=== PATIENT | male | born 1960 | race Caucasian/White ===

== ENCOUNTER 2016-12-25 08:05 | Day surgery (SDC) | payer OTHER ==
[~2016-12-25] VITALS: Ht 177.8 cm; Wt 96.8 kg
[~2016-12-25 08:05] MED LIST: ATOR20TA59 PO; LIDOCAINE 1% (10mg/ml) 2ml SDV INJ ONE; LR 1,000 ML IV SCH
--- OUTSIDE RECORDS SUMMARY | 2016-12-25 08:09 | XMS REPORT | Referral Summary ---
Author Author [facility] Organization [facility] Address Unknown Phone Unavailable Care Team Providers Care Special Deputy Sheriff Name Role Phone Arturo Arboleda Primary Care Physician [phone] Encounter VC Date(s): 01/30/16 - 01/30/16 [facility] [address] [place] [address] Discharge Diagnosis: Visit for suture removal Discharge Diagnosis: Finger fracture Discharge Disposition: 01-Home or Self Care Attending Physician: Arturo Arboleda DO Admitting Physician: Arturo Arboleda DO Vital Signs Most recent to 1 oldest [Reference Range]: Temperature Tympanic 35.9 degC [36.6-38.1 degC] *LOW* (01/30/16 8:21 AM) Peripheral Pulse 60 bpm Rate [60-100 bpm] (01/30/16 8:21 AM) Blood Pressure 115/71 mmHg [90-140/60-90 mmHg] (01/30/16 8:21 AM) Problem List Condition Effective Dates Status Health Status Informant Obesity(Confirmed) Active patient Allergies, Adverse Reactions, Alerts Substance Reaction Severity Status penicillin Active Medications doxycycline hyclate 100 mg oral tablet 100 mg 1 tabs, Oral, Daily, X 50 days, # 50 tabs, 0 Refill(s), Pharmacy: [facility] #[id number], 1 tabs Oral Daily,x50 days Start Date: 12/25/15 Stop Date: 02/13/16 Status: Ordered meloxicam 15 mg oral tablet 15 mg 1 tabs, Oral, Daily, # 30 tabs, 0 Refill(s), Pharmacy: [facility] # [id number], 1 tabs Oral Daily Start Date: 05/06/15 Status: Ordered Results No data available for this section Immunizations Vaccine Date Refusal Reason tetanus-diphth toxoids (Td) adult/adol 05/06/15 Procedures No data available for this section Social History Social History Type Response Smoking Status Former smoker; Type: Cigarettes; Tobacco use per day: 1 Pack ; Number of years: 15 Assessment and Plan Extracted from: Title: Office Visit Note Author: Arturo Arboleda DO Date: 01/30/16 Assessment/Plan 1.Finger fracture, Nondisplaced fracture of distal phalanx of right little finger, initial encounter for open fracture 1. Finger splint was provided. 2. Start increasing range of motion and after 4 weeks. Ordered: Office Visit Level 3 Est 80518 2.Visit for suture removal, Encounter for removal of sutures 1. Sutures removed without difficulty. 2. Continue with dry dressing. 3. Follow-up for any new concerns. Ordered: Office Visit Level 3 Est 73655
--- OUTSIDE RECORDS SUMMARY | 2016-12-25 08:09 | XMS REPORT | Referral Summary ---
Author Author [facility] Organization [facility] Address Unknown Phone Unavailable Care Team Providers Care County Adviser Name Role Phone Juan Flores Primary Care Physician [phone] Encounter Date(s): 05/21/15 - 05/21/15 [facility] [address] [place] [address] Discharge Diagnosis: Mixed hyperlipidemia Discharge Diagnosis: Hamstring tightness Discharge Disposition: 01-Home or Self Care Attending Physician: Arturo Arboleda DO Admitting Physician: Arturo Arboleda DO Vital Signs Most recent to 1 oldest [Reference Range]: Temperature Tympanic 35.8 degC [36.6-38.1 degC] *LOW* (05/21/15 7:51 AM) Peripheral Pulse 60 bpm Rate [60-100 bpm] (05/21/15 7:51 AM) Blood Pressure 135/80 mmHg [90-140/60-90 mmHg] (05/21/15 7:51 AM) Problem List Condition Effective Dates Status Health Status Informant Obesity(Confirmed) Active patient Allergies, Adverse Reactions, Alerts Substance Reaction Severity Status penicillin Active Medications cyclobenzaprine 10 mg oral tablet 10 mg 1 tabs, Oral, Daily, as needed for spasm, X 30 days, # 30 tabs, 0 Refill(s ), Pharmacy: [facility] #[id number], 1 tabs Oral Daily,x30 days,PRN:as needed for spasm Start Date: 05/06/15 Stop Date: 06/05/15 Status: Ordered meloxicam 15 mg oral tablet 15 mg 1 tabs, Oral, Daily, # 30 tabs, 0 Refill(s), Pharmacy: [facility] # [id number], 1 tabs Oral Daily Start Date: 05/06/15 Status: Ordered predniSONE 10 mg oral tablet See Instructions, 5 daily for 3 days, then 4 daily for 3 days, then 3 daily for 3 days, then 2 daily for 3 days, then one daily for 3 days, # 45 tabs, 0 Refill( s), Pharmacy: [facility] #[id number], 5 daily for 3 days, then 4 daily for 3 days, then 3... Start Date: 05/06/15 Stop Date: 06/05/15 Status: Ordered Results No data available for this section Immunizations Vaccine Date Refusal Reason tetanus-diphth toxoids (Td) adult/adol 05/06/15 Procedures No data available for this section Social History Social History Type Response Smoking Status Former smoker; Type: Cigarettes; Tobacco use per day: 1 Pack ; Number of years: 15 Assessment and Plan Extracted from: Title: Office Visit Note Author: Arturo Arboleda DO Date: 05/21/15 Assessment/Plan Hamstring tightness 1. Continue stretching exercises. 2. Continue decompression. 3. Continue meloxicam daily . Ordered: Office Visit Level 4 Est 25925 Mixed hyperlipidemia 1. Recommended healthy lifestyle changes and an effort to decrease his cardiovascular risk factors, patient voiced understanding. 2. 81 mg of aspirin daily . 3. Recheck fasting lipids in 6 months, if no improvement then we plan on recommending a statin. Again he was referred to Dr. Stallingslonoscopyscreening. Ordered: Office Visit Level 4 Est 01698
--- OUTSIDE RECORDS SUMMARY | 2016-12-25 08:09 | XMS REPORT | Continuity of Care Document ---
Author Author [facility] Organization [facility] Address Unknown Phone Unavailable Allergies Active Description Code Type Severity Reaction Onset Reported/Identified Relationship to Patient Clinical Status Yes penicillin NKMA N/A N/A 12/20/2013 Medications Problems Procedures Results Encounters ACCT No. Visit Date/Time Discharge Status Pt. Type Provider Facility Loc./Unit Complaint [id number] 11/05/2016 07:57:00 2016 23:59:00 DIS Outpatient Arturo Arboleda Via [facility] TCPA COMPLETE PHY [id number] 01/30/2016 08:16:00 2015 23:59:00 DIS Outpatient Arturo Arboleda Via [facility] ACC right pinkie hand stitch removal [facility] DOI 2015 [id number] 12/25/2015 09:03:00 2015 23:59:00 DIS Outpatient Arturo Arboleda Via [facility] DISCUSS POSSIBLE RX OUT OF COUNTRY VISIT [id number] 05/06/2015 14:25:00 2014 23:59:00 DIS Outpatient Arturo Arboleda Via [facility] backpain
--- OUTSIDE RECORDS SUMMARY | 2016-12-25 08:09 | XMS REPORT | Referral Summary ---
Author Author [facility] Organization [facility] Address Unknown Phone Unavailable Care Team Providers Care Geospatial Engineer Name Role Phone Juan Flores Primary Care Physician [phone] Encounter Date(s): 05/06/15 - 05/06/15 [facility] [address] [place] [id number] Discharge Diagnosis: Routine physicl lab exam Discharge Diagnosis: Acute low back pain Discharge Disposition: 01-Home or Self Care Attending Physician: Arturo Arboleda DO Admitting Physician: Arturo Arboleda DO Vital Signs Most recent to 1 oldest [Reference Range]: Temperature Tympanic 36.2 degC [36.6-38.1 degC] *LOW* (05/06/15 2:35 PM) Peripheral Pulse 72 bpm Rate [60-100 bpm] (05/06/15 2:35 PM) Blood Pressure 135/78 mmHg [90-140/60-90 mmHg] (05/06/15 2:35 PM) Problem List Condition Effective Dates Status Health Status Informant Obesity(Confirmed) Active patient Allergies, Adverse Reactions, Alerts Substance Reaction Severity Status penicillin Active Medications meloxicam 15 mg oral tablet 15 mg 1 tabs, Oral, Daily, # 30 tabs, 0 Refill(s), Pharmacy: [facility] # [id number], 1 tabs Oral Daily Start Date: 05/06/15 [...] Visit Note Author: Arturo Arboleda DO Date: 05/06/15 Assessment/Plan Acute low back pain Pathophysiology of this presentation, and differential diagnosis, discussed in detail with the patient. All questions were answered. 1. Clinical finding consistent with muscle spasm of the lumbosacral region and hamstrings of the left lower extremity. 2. Taper dose prednisone over 15 days. 3. Meloxicam 15 mg daily for 2-4 weeks. 4. Cyclobenzaprine 10 mg daily for 2-4 weeks. 5. Stretching exercises recommended. 6. Follow-up in 2 weeks for reevaluation, if no improvement then we may consider physical therapy versus imaging. Ordered: cyclobenzaprine, 10 mg 1 tabs, Oral, Daily, as needed for spasm, X 30 days, # 30 tabs, 0 Refill(s), Pharmacy: [facility] #[id number], 1 tabs Oral Daily,x30 days,PRN:as needed for spasm meloxicam, 15 mg 1 tabs, Oral, Daily, # 30 tabs, 0 Refill(s), [facility]: [facility] #[id number], 1 tabs Oral Daily predniSONE, See Instructions, 5 daily for 3 days, then 4 daily for 3 days, then 3 daily for 3 days, then 2 daily for 3 days, then one daily for 3 days, # 45 tabs, 0 Refill(s), [facility] #[id number], 5 daily for 3 days, then 4 daily for 3 days, then 3... Office Visit Level 4 New 11580 Routine physicl lab exam 1. This is a relatively healthy 54-year-old gentleman. 2. Fasting labs ordered for CBC, complete metabolic profile, fasting lipids and PSA. Recommended that he gets this done prior to next office visit. 3. We'll refer him to Dr. Jones for fast-track colonoscopy. 4. Recommended scheduling a well male exam for next office visit in addition for follow-up on back pain. Ordered: CBC w/ Differential Comprehensive Metabolic Panel Lipid Panel Office Visit Level 4 New 07149 Prostate Specific Antigen
--- OUTSIDE RECORDS SUMMARY | 2016-12-25 08:09 | XMS REPORT | Referral Summary ---
Author Author [facility] Organization [facility] Address Unknown Phone Unavailable Care Team Providers Care Hvac Sheet Metal Installer Helper Name Role Phone Juan Flores Primary Care Physician [phone] Encounter Date(s): 05/21/15 - 05/21/15 [facility] [address] [place] [id number] Discharge Diagnosis: Mixed hyperlipidemia Discharge Diagnosis: Hamstring [...] Daily, # 30 tabs, 0 Refill(s), Pharmacy: [facility] # [id number], 1 tabs Oral Daily Start Date: 05/06/15 [...] . Ordered: Office Visit Level 4 Est 61822 Mixed hyperlipidemia 1. Recommended healthy lifestyle changes and an effort to decrease his cardiovascular risk factors, patient voiced understanding. 2. 81 mg of aspirin daily . 3. Recheck fasting lipids in 6 months, if no improvement then we plan on recommending a statin. Again he was referred to Dr. Stallingslonoscopyscreening. Ordered: Office Visit Level 4 Est 80911
--- OUTSIDE RECORDS SUMMARY | 2016-12-25 08:09 | XMS REPORT | Referral Summary ---
Author Author [facility] Organization [facility] Address Unknown Phone Unavailable Care Team Providers Care Legal Clerk Name Role Phone Arturo Arboleda Primary Care Physician [phone] Encounter VC Date(s): 12/25/15 - 12/25/15 [facility] [address] [place] [id number] Discharge Diagnosis: Counseling about travel Discharge Disposition: 01-Home or Self Care Attending Physician: Arturo Arboleda DO Admitting Physician: Arturo Arboleda DO Vital Signs Most recent to 1 oldest [Reference Range]: Temperature Tympanic 36.3 degC [36.6-38.1 degC] *LOW* (12/25/15 9:07 AM) Apical Heart Rate 66 bpm [60-100 bpm] (12/25/15 9:07 AM) Blood Pressure 112/82 mmHg [90-140/60-90 mmHg] (12/25/15 9:07 AM) Problem List Condition Effective Dates Status Health Status Informant Obesity(Confirmed) Active patient Allergies, Adverse Reactions, Alerts Substance Reaction Severity Status penicillin Active Medications doxycycline hyclate 100 mg oral tablet 100 mg 1 tabs, Oral, Daily, X 50 days, # 50 tabs, 0 Refill(s), Pharmacy: [facility] #[id number], 1 tabs Oral Daily,x50 days Start Date: 12/25/15 Stop Date: 02/13/16 Status: Ordered meloxicam 15 mg oral tablet 15 mg 1 tabs, Oral, Daily, # 30 tabs, 0 Refill(s), Pharmacy: [facility] # [id number], 1 tabs Oral Daily Start Date: 05/06/15 [...] Visit Note Author: Arturo Arboleda DO Date: 12/25/15 Assessment/Plan Counseling about travel 1. We discussed traveling to [place] and in particular [facility]. 2. I agree with the immunizations he has received from the health department. 3. CDC recommendation was for doxycycline prophylaxis treatment for malaria. Prescription was sent out to start 2 days prior to traveling and discontinue a month after returning. Patient voiced understanding. 4. Food and water borne illnesses discussed in detail, recommendations were made accordingly. 5. Recommended considering Travel Health and Evacuation Insurance. Patient voiced understanding. Ordered: Office Visit Level 3 Est 64831 Orders: doxycycline, 100 mg 1 tabs, Oral, Daily, X 50 days, # 50 tabs, 0 Refill(s), Pharmacy: [facility] #[id number], 1 tabs Oral Daily,x50 days
--- OUTSIDE RECORDS SUMMARY | 2016-12-25 08:09 | XMS REPORT | Continuity of Care Document ---
Author Author [facility] Organization [facility] Address Unknown Phone Unavailable Support Name Relationship Address Phone DECEMBER, MARYELLEN Ruvalcaba DO Caregiver [address] [place] [address] Unavailable MARISEL FALCON DO Caregiver [address] [place] [address] [place] [address] Unavailable FOX KANG Next Of Kin [address] [place] [address] Insurance Providers Guarantor Henry Kang Address [address] [place] [address] Email DENIED/NO PORTAL Payer [employer] Policy Number [id number] Subscriber's Name MarlinavinHenry K Relationship 18 Self Group Number [id number] Advance Directives Directive Response Recorded Date/Time Advanced Directives Type None 01/22/16 9:26pm Chief Complaint and Reason for Visit Chief Complaint Upper Extremity Injury Reason for Visit Fracture, finger, distal phalanx, open Problems Past Problems Medical Problem Onset Date Fracture, finger, distal phalanx, open Unknown Medications Current Home Medications Medication Dose Units Route Directions Days Qty Instructions Start Date Cephalexin (Keflex) 500 Mg Capsule 1 Cap Oral Three Times A Day 21 Capsule 01/22/16 No Routine Meds 01/22/16 Social History Social History Problem Response Recorded Date/Time Onset Date Status Hx Substance Use No 01/22/2016 9:57pm Not Applicable Not Applicable Hx Alcohol Use Y 2 BEERS/DAY 01/22/2016 9:57pm Not Applicable Not Applicable Tobacco Usage none 01/22/2016 9:40pm Not Applicable Not Applicable Query Response Start Date Stop Date Smoking Status Former smoker Hospital Discharge Instructions No hospital discharge instructions. Plan of Care Discharge Date 01/22/16 10:57pm Disposition 01 DISCHARGED HOME, SELF-CARE Condition at Discharge Stable Instructions/Education Provided DI for Finger Fracture Prescriptions See Medication Section Referrals MARISEL FALCON DO Address: [address] [place] [address] [place] [phone] Additional Instructions/Education Take the Keflex as ordered. Follow up in primary care provider's office in about a week for suture removal and reevaluation. Wear the aluminum splint until follow up . You may wash daily with soap and water. Keep wound clean and dry and covered with gauze as well. Care Plan and Goals Physician Care Plan Problem:Finger Laceration, open fracture Goal: Follow up with primary care provider Instructions: Take medications and follow care plan as discussed/written Functional Status No functional status results. Allergies, Adverse Reactions, Alerts No known allergies. Immunizations Query Response on File Recorded Date/Time DTaP Vaccine History 10/201501/22/16 9:57pm Influenza Vaccine Hx NOT REC'D 01/22/16 9:57pm Tdap Vaccine Hx LAST FEW MONTHS 01/22/16 9:29pm Vital Signs Acute Vital Signs Vital Response Date/Time Temperature (Fahrenheit) 98.0 deg F (96.8 - 99.1) 01/22/2016 9:26pm Temperature (Calculated Celsius) 36.39503 degrees C (36.0 - 37.3) 01/22/2016 9:26pm Pulse Rate (adult) 58 bpm (60 - 100) 01/22/2016 10:56pm Respiratory Rate 18 breaths/min (10 - 20) 01/22/2016 10:56pm O2 Sat by Pulse Oximetry 96 % (90 - 100) 01/22/2016 10:56pm Blood Pressure 120/74 mm Hg 01/22/2016 10:56pm Height (Feet) 5 feet 01/22/2016 9:29pm Height (Inches) 9.00 inches 01/22/2016 9:29pm Weight (Kilograms) 98.000 kg 01/22/2016 9:29pm Body Mass Index (BMI) 31.0 01/22/2016 9:29pm Results No known relevant diagnostic tests, laboratory data and/or discharge summary. Procedures No known history of procedures. Encounters Encounter Location Arrival/Admit Date Discharge/Depart Date Attending Provider Departed Emergency Room [facility] 01/22/16 9:23pm 01/22/16 10: 57pm MARYELLEN HERNANDEZ DO Recent Diagnosis
[2016-12-25 08:26] VITALS: Ht 177.8 cm; Wt 96.8 kg
--- NOTE | 2016-12-25 08:49 | ANESPREOP ---
Anesthesia Record Date and Time DATE: 12/25/16 TIME: 08:45 Pre-Op Diagnosis mn Proposed Surgical Procedure COLONOSCOPY NPO since: mn Allergies: Coded Allergies: Penicillins (Unverified Allergy, Unknown, 12/25/16) Ht/Wt/BMI Height: 5 ' 10.00 " Weight: 96.800 kg BMI: 30.6 kg/m2 Medications Inpatient Medications Current Medications Medications (Trade) Dose Ordered Sig/Will Start Time Stop Time Status Last Admin Dose Admin Lactated Ringer's (Lactated Ringers) 1,000 ml @ 30 mls/hr Q24H 12/25/16 07:00 12/25/16 08:41 30 MLS/HR Atorvastatin Calcium (Atorvastatin Calcium) 20 Mg Tablet, 1 TAB PO HS, (Reported ) Last Taken: on 12/23/16 2100 Currently on Beta Adriana: No Medical/Surgical History Anesthesia PMH: Reports: Arthritis, Denies: *Diabetes, Anesthesia Reactions ( NO AIRWAY ISSUES), Cancer, Clotting Problems, Glaucoma, Malignant Hyperthermia, Renal Disease, Sleep Apnea, Thyroid Disease Smoking Status: Never smoker (quit 15 yrs ago ) Has pt. smoked today?: No Use Chewing Tobacco?: No Second Hand Exposure: No Substance Use Type: does not use Alcohol Intake: none Past Surgical History Orthopedic Surgeries: Yes - R KNEE SCOPE Abdominal Surgeries: Yes - NISEN-FUNDIPLICATION Genitourinary Surgeries: Cardiac Surgeries: Endocrine Surgeries: Reproductive Surgeries: Neurological Surgeries: Ear Surgeries: Nose Surgeries: Throat Surgeries: Other Surgeries: Yes - RIGHT EYE Anesthesia Adverse Reactions: FOUND none Hx of Motion Sickness: No Pertinent Findings EKG Rhythm: Sinus Rhythm Physical Exam Respiratory: Bilat breath sounds equal, Lungs clear Cardiovascular: FOUND Regular rate, rhythm, FOUND No murmur Airway Assessment Mallampati Score: III TMD: 2 Fingerbreadths Overall Assessment: No Airway Concerns ASA: 2 Plan Anesthesia Plan: TIVA Discussion Discussed risks/options/alternatives of anesthesia and questions answered. Patient consents. Nursing pain assessment noted. Attestation Statement Prior to the delivery of any anesthetic medication, I examined the patient, developed the plan, obtained the patient's consent and discussed the risk and benefits of the procedure with the patient/guardian. JOHANNE NICKERSON CRNA December 25, 2016 08:48
[2016-12-25] MEDS ORDERED: PROPOFOL 500mg 50 ML IV ONE (10:17)
[2016-12-25] MEDS ORDERED: LIDOCAINE 2% (20mg/ml) 5ml PF SDV ONE (10:17)
[2016-12-25] MEDS ORDERED: FENTANYL 100mcg/2ml INJECTION ONE (10:22)
[2016-12-25 10:43] VITALS: BP 124/64; PULSE 58; RESP 12; TEMP 97.4; O2SAT 96
[2016-12-25 10:58] VITALS: BP 124/81; PULSE 54; RESP 12; TEMP 97.5; O2SAT 99
[2016-12-25 11:03] VITALS: BP 147/83; PULSE 53; RESP 16; O2SAT 98
--- NOTE | 2016-12-25 11:05 | ANESPO ---
Post-Op Note Date 12/25/16 Time: 10:54 Status Pt Participated in Evaluation: Pt participated in person Vital Signs Date Time Temp Pulse Resp B/P Pulse Ox O2 Delivery O2 Flow Rate FiO2 12/25/16 10:58 97.5 54 12 124/81 99 Room Air Respiratory Function: Airway patent Mental Status: Alert/oriented Pain Level Intensity: 0 Hydration: IV infusing Complications during Recovery None apparent Follow-Up Instructions Instructions Per Surgeon JOHANNE NICKERSON CRNA December 25, 2016 11:04
--- NOTE | 2016-12-25 15:44 | OPNOTEF ---
DATE OF SERVICE 12/25/2016 SURGEON Rohit Jones MD PREOPERATIVE DIAGNOSIS Colorectal cancer surveillance. POSTOPERATIVE DIAGNOSIS Colorectal cancer surveillance, colonic polyp x1 at 15 cm from the anal verge. PROCEDURE Colonoscopy with polypectomy via cold biopsy technique. ANESTHESIA TIVA BRIEF HISTORY/INDICATIONS Mr. Kang is a 56-year-old gentleman who presents today to undergo a colonoscopy to serve as a portion of his overall colorectal cancer surveillance. For completeness please refer to notes included in the patient's chart. FINDINGS Upon colonoscopy, he was found to have a single polyp at 15 cm from the anal verge that was on the order of about 5-6 mm in diameter. This polyp was removed in its entirety via cold biopsy technique. There was no evidence for angiodysplastic lesions, diverticula or yelena malignancies. DESCRIPTION OF PROCEDURE After informed consent was obtained, the patient was brought to the endoscopy suite and placed on the table in left lateral decubitus position. The patient subsequently underwent total intravenous anesthesia by the nurse grit removal operator per my request. Next a formal time-out was then completed. A digital rectal examination was then performed. Normal sphincter tone. No rectal masses were appreciated. An Olympus colonoscope was inserted in the anus and advanced through the lumen of the colon under direct visualization at all times until the cecum was ascertained. Triangulation of the teniae coli, ileocecal valve and appendiceal lumen were all visualized. The scope was then slowly withdrawn, again while maintaining visualization of the lumen at all times. The entire colon was without evidence for angiodysplastic lesions, diverticula or yelena malignancies. As the scope was being slowly withdrawn, a single polyp was identified at 15 cm from the anal verge. This polyp was on the order of about 5 mm in diameter. The polyp was grasped and removed in its entirety via cold biopsy technique and submitted for pathologic evaluation. A J-maneuver was then performed. No worrisome perianal pathology was noted. Scope was allowed to straighten and withdrawn through the anal verge. The patient tolerated the procedure without difficulty and was sent back to the preop area in stable condition. We will await the biopsy results from today's single polypectomy and will proceed accordingly with further recommendations thereafter. JAJA
== END 2016-12-25 11:16 | disposition home or self-care (01) ==
LOC: NSC 08:05
PROVIDERS: ATTEND Surgery
DX: Z12.11 Encounter for screening for malignant neoplasm of colon (principal); K63.5 Polyp of colon; Z79.1 Long term (current) use of non-steroidal anti-inflammatories (NSAID); Z79.899 Other long term (current) drug therapy; Z87.891 Personal history of nicotine dependence
CPT/HCPCS: 45380; J3010; J7120